=== PATIENT | male | born 1970 | race Caucasian/White ===

== ENCOUNTER 2021-12-12 12:50 | Emergency (ER) | payer OTHER ==
[~2021-12-12] VITALS: Ht 170.2 cm; Wt 77.1 kg
--- NOTE | ~2021-12-12 | EMS ---
[place] [address] EMS Patient Care Report Name: SHANNA KU Room #: DEP Esha#: [id number] Admission: 12/12/21 Attend Phys: Discharge: 12/12/21 Date of : 70 Report #: [id number] THIS REPORT FOR: //name// Report Transmitted: 12/13/2021 13:27 EMS Care Summary [place], [place]/[facility] Incident [id number] @ 12/12/2021 12:16 Incident Location [address] Patient SHANNA KU Male, 51 Years 1970 Patient Address [address] [address] Patient History Asthma,Chronic Obstructive Pulmonary Disease (COPD),Substance Abuse, Patient Allergies No known allergies, Patient Medications Methadone, Tamsulosin, Clonidine, Zoloft, Albuterol, Chief Complaint abd distention Disposition Transported No Lights/[place] [facility] Reason Breathing Problem Transported To [facility] Narrative pt presents seated in chair at [facility] c/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 compares current complaint to a time several years ago that he had an ileus. pt states the distention makes it difficult to take a deep breath. 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 pt is able to speak in clear, unbroken sentences, with no s/[place] [address] EMS Patient Care Report Name: SHANNA KU Room #: DEP [facility]#: [id number] Admission: 12/12/21 Attend Phys: Discharge: 12/12/21 Date of : 70 Report #: [id number] distress. pt transported secured to bench with seatbelts, no changes enroute. care transferred to ed staff on arrival. Initial Vitals @12:30P: 102,R: 18,BP: 106/62,Pain: 0/10,GCS: 15,CO: 3,SpO2: 97,Revised Trauma: 12, @12:28P: 106,R: 18,BP: 127/82,Pain: 0/10,GCS: 15,SpO2: 97,Revised Trauma: 12, @12:27P: 105,R: 18,BP: 124/84,Pain: 0/10,GCS: 15,SpO2: 97,Revised Trauma: 12, Assessments @12:28MENTAL:Event Oriented,Time Oriented,Person Oriented,Place Oriented,SKIN:HEENT:Head/Face: No Abnormalities,LUNG SOUNDS:General: Other,ABDOMEN:General: Other,PELVIS//GI:EXTREMITIES:Left Arm: No Abnormalities,Right Arm: No Abnormalities,Left Leg: No Abnormalities,Right Leg: No Abnormalities,PULSE:Radial: 2+ Normal,NEURO:No Abnormalities, Impression Acute abdomen Procedures @12:27 ALS Assessment Response: UnchangedSucceeded Timeline 12:14,Call Received 12:14,Dispatch Notified 12:16,Dispatched 12:18,En Route 12:24,On Scene 12:26,At Patient 12:27,ALS Assessment,Response: UnchangedSucceeded, 12:27,BP: 124/84 M,PULSE: 105,RR: 18 R,SPO2: 97 Ox,ETCO2: ,BG: ,PAIN: 0,GCS: 15, 12:28,BP: 127/82 M,PULSE: 106,RR: 18 R,SPO2: 97 Ox,ETCO2: ,BG: ,PAIN: 0,GCS: 15, 12:30,BP: 106/62 M,PULSE: 102,RR: 18 R,SPO2: 97 Ox,ETCO2: ,BG: ,PAIN: 0,GCS: 15, 12:32,Depart Scene 12:48,At Destination 12:55,Call Closed Disclaimer [email or web address] Copyright 2021 [employer] This EMS Care Summary contains data elements from the applicable legal record (which may be displayed differently). It is designed to provide pertinent information for the following purposes: continuity of care, clinical quality, [address] [address] EMS Patient Care Report Name: SHANNA KU Room #: DEP Esha#: [id number] Admission: 12/12/21 Attend Phys: Discharge: 12/12/21 Date of : 70 Report #: [id number] and state data reporting. The complete legal record is available to ED staff and administrators of the receiving hospital in [facility]'s Patient Tracker. All data is provided "as is."
[2021-12-12] MEDS ORDERED: SERTRALINE HCL100 MG PO (13:03)
[2021-12-12] MEDS ORDERED: SEROQUEL 100 M100 M1 PO (13:03)
[2021-12-12] MEDS ORDERED: ALBUTEROL2.5 MG/0.1 INH (13:04)
[2021-12-12] MEDS ORDERED: FLOMAX0.4 MG PO (13:04)
[2021-12-12] MEDS ORDERED: METHADONE HCL5 MG PO (13:04)
[2021-12-12] MEDS ORDERED: CLONIDINE HCL0.1 M1 PO (13:05)
[2021-12-12] MEDS ORDERED: NEURONTIN100 MG PO (13:06)
[2021-12-12] MEDS ORDERED: PREDNISONE 10 M10 MG PO (13:06)
[2021-12-12] MEDS ORDERED: BUPROPION HCL100 MG PO (13:07)
[2021-12-12 13:15] LABS: URINE BILIRUBIN NEGATIVE (Negative); URINE BLOOD NEGATIVE (Negative); URINE CLARITY CLEAR; URINE COLOR YELLOW; URINE GLUCOSE-RANDOM* NEGATIVE (Negative); URINE KETONES NEGATIVE (Negative); URINE LEUKOCYTES-REFLEX NEGATIVE (Negative); URINE NITRITE-REFLEX NEGATIVE (Negative); URINE PROTEIN (DIPSTICK) NEGATIVE (Negative); URINE SPECIFIC GRAVITY <= 1.005 (1.005-1.035); URINE UROBILINOGEN 0.2 E.U./dl (0.2-1.0)
[2021-12-12 13:16] LABS: ABSOLUTE NEUTROPHILS 8.9 thou/uL (1.4-8.2); BASOPHILS 0.4 % (0.0-2.0); EOSINOPHILS 0.7 % (0.0-3.0); HEMOGLOBIN 11.6 gm/dL (14.0-18.0); LYMPHOCYTES 13.6 % (24.0-44.0); MCH 29.3 pg (26.0-34.0); MCHC 33.2 g/dL (28.0-37.0); MCV 88.4 fL (80.0-100.0); MONOCYTES 3.4 % (1.0-8.0); PLATELET COUNT 207 thou/uL (150-400); POLYS 81.9 % (36.0-66.0); RBC 3.95 mil/uL (4.50-6.00); RDW 15.3 % (10.5-14.5); WBC 10.8 thou/uL (4.0-11.0)
[2021-12-12 13:23] LABS: CALCIUM 8.8 mg/dL (8.5-10.1); CREATININE 1.7 mg/dL (0.7-1.3); POTASSIUM 4.2 mmol/L (3.5-5.1)
[2021-12-12 13:30] LABS: ALBUMIN 3.2 g/dL (3.4-5.0); TOTAL BILIRUBIN 0.2 mg/dL (0.2-1.0); TOTAL PROTEIN 6.4 g/dL (6.4-8.2)
[2021-12-12 14:53] VITALS: BP 103/67
[2021-12-12] MEDS ORDERED: MIRALAX119 GM PO (15:19)
[2021-12-12] MEDS ORDERED: PEPCID40 MG PO (15:19)
[2021-12-12] MEDS ORDERED: AMOXIL 875 MG875 M1 PO (20:17)
[2021-12-12] MEDS ORDERED: METRONIDAZOLE500 M4 PO (20:17)
== END 2021-12-12 14:53 | disposition home or self-care (01) ==
LOC: ER 12:50
PROVIDERS: Emergency Medicine
DX: K59.00 Constipation, unspecified (principal); J45.909 Unspecified asthma, uncomplicated; J44.9 Chronic obstructive pulmonary disease, unspecified; F11.10 Opioid abuse, uncomplicated; F15.10 Other stimulant abuse, uncomplicated; F17.210 Nicotine dependence, cigarettes, uncomplicated; Z88.8 Allergy status to other drugs, medicaments and biological substances

== ENCOUNTER 2021-12-12 18:56 | Emergency (ER) | payer OTHER ==
[~2021-12-12] VITALS: Ht 167.6 cm; Wt 72.6 kg
[~2021-12-12 18:56] MED LIST: ALBUTEROL2.5 MG/0.1 INH; BUPROPION HCL100 MG PO; CLONIDINE HCL0.1 M1 PO; FLOMAX0.4 MG PO; METHADONE HCL5 MG PO; MIRALAX119 GM PO; NEURONTIN100 MG PO; PEPCID40 MG PO; PREDNISONE 10 M10 MG PO; SEROQUEL 100 M100 M1 PO; SERTRALINE HCL100 MG PO
[2021-12-12 18:57] VITALS: BP 100/64
[2021-12-12] MEDS ORDERED: METRONIDAZOLE500 M4 PO (20:17)
[2021-12-12] MEDS ORDERED: AMOXIL 875 MG875 M1 PO (20:17)
== END 2021-12-12 20:23 | disposition home or self-care (01) ==
LOC: ER 18:56
DX: R10.9 Unspecified abdominal pain (principal); R91.8 Other nonspecific abnormal finding of lung field; F17.210 Nicotine dependence, cigarettes, uncomplicated; J45.909 Unspecified asthma, uncomplicated; J44.9 Chronic obstructive pulmonary disease, unspecified; F15.10 Other stimulant abuse, uncomplicated; F11.10 Opioid abuse, uncomplicated; Z88.8 Allergy status to other drugs, medicaments and biological substances